=== PATIENT | male | born 1980 | race Caucasian/White ===

== ENCOUNTER 2017-08-04 07:56 | Emergency (ER) | payer OTHER, MEDICAID ==
[~2017-08-04] VITALS: Ht 177.8 cm; Wt 83.7 kg
[~2017-08-04 07:56] MED LIST: IBUP-238 PO
[2017-08-04 08:00] VITALS: BP 127/83; PULSE 80; RESP 16; TEMP 98.3; O2SAT 99
[2017-08-04] MEDS ORDERED: PENI500T PO (08:14)
[2017-08-04] MEDS ORDERED: NAPR500T PO (08:23)
--- NOTE | 2017-08-04 08:23 | PD ---
HPI Chief Complaint: ENT Complaint Time Seen by Provider: 08:12 Travel History International Travel<30 days: No Contact w/Intl Traveler<30days: No Traveled to known affect area: No History of Present Illness HPI This is a 36-year-old male who presents to the emergency department with sore throat, constant for 3 days, severe at nighttime, feeling like he can't breathe when he lays flat, and that he has pain when he eats. He denies any associated fevers or chills. He has not been coughing. He was seen at an urgent care yesterday and had a negative rapid strep that was treated with penicillin. He' s taken 2 doses of penicillin but he says his pain is much worse. PFSH Past Medical History Medical History: Denies Significant Hx Blood Disorders: No Cancer: No Cardiovascular Problems: No Diminished Hearing: No Endocrine: No Gastrointestinal Disorders: No Genitourinary: No Immune Disorder: No Implanted Vascular Access Dvce: No Musculoskeletal: No Neurologic: No Psychiatric: No Reproductive: No Respiratory: No Immunizations Current: Yes Past Surgical History Other Surgery: No Social History Alcohol Use: Yes (OCCASIONAL) Tobacco Use: Yes (occasional) Substance Use: No Allergies-Medications (Allergen,Severity, Reaction): Coded Allergies: No Known Allergies (Verified , 08/04/17) Reported Meds & Prescriptions Reported Meds & Active Scripts Active Reported Penicillin V Potassium 500 Mg Tab 500 Mg PO Q6H Review of Systems Except as stated in HPI: all other systems reviewed are Neg Physical Exam Narrative GENERAL:Well appearing, no acute distress SKIN: Focused skin assessment warm and dry. HEAD: Atraumatic. Normocephalic. EYES: Pupils equal and round. No injection or drainage. ENT: Moist mucous membranes. Posterior pharyngeal erythema with tonsillar erythema and edema and some exudate on the left tonsil. No asymmetry or uvular deviation. NECK: Trachea midline. No cervical lymphadenopathy. CARDIOVASCULAR: Regular rate and rhythm. No murmur appreciated. RESPIRATORY: Clear to auscultation. Breath sounds equal bilaterally. GASTROINTESTINAL: Abdomen soft, non-tender, nondistended. MUSCULOSKELETAL: No obvious deformities. NEUROLOGICAL: Awake and alert. No obvious cranial nerve deficits. Moving all extremities. PSYCHIATRIC: Appropriate mood and affect; insight and judgment normal. Data Data Last Documented VS Vital Signs Date Time Temp Pulse Resp B/P (MAP) Pulse Ox O2 Delivery O2 Flow Rate FiO2 10/11/17 08:00 98.3 80 16 127/83 (98) 99 [facility] Medical Decision Making Medical Screen Exam Complete: Yes Emergency Medical Condition: Yes Differential Diagnosis Pharyngitis, peritonsillar abscess, mononucleosis, epiglottitis Narrative Course This is a 36-year-old male who presents to the emergency department with a sore throat that's been worsening since yesterday when he started penicillin. He has no signs of peritonsillar abscess and I don't think he has mononucleosis as he is afebrile and he has no lymphadenopathy. I think patient may benefit symptomatically from steroids. Patient will be given a dose of IM Decadron and an anti-inflammatory to go home with. I think he's safe for outpatient management. Diagnosis Primary Impression: Pharyngitis Qualified Codes: J02.9 - Acute pharyngitis, unspecified Patient Instructions: General Instructions Additional Instructions: If you develop severe chest pain, shortness of breath, sweating, lightheadedness , dizziness or difficulty breathing return to the emergency department immediately. Followup with your primary care physician in 2-3 days if your symptoms are not resolved. Med/Other Pt SpecificInfo: Prescription(s) given Scripts Naproxen (Naproxen) 500 Mg Tab 500 MG PO BID Y for PAIN SCALE 4 TO 10 for 10 Days, #20 TAB 0 Refills Prov: Radha Means MD 08/04/17 Disposition: 01 DISCHARGE HOME Condition: Stable Radha Means MD Aug 04, 2017 08:23
[2017-08-04] MEDS ORDERED: DEXAMETHASONE SOD PHOS 20 MG/5 ML VIAL IM ONE (08:30)
== END 2017-08-04 08:36 | disposition home or self-care (01) ==
LOC: PHED 07:56
DX: J02.9 Acute pharyngitis, unspecified (principal)
CPT/HCPCS: 96372; 99284; J1100

== ENCOUNTER 2018-01-15 23:15 | Emergency (ER) | payer MEDICAID ==
[~2018-01-15] VITALS: Ht 177.8 cm; Wt 82.0 kg
[~2018-01-15 23:15] MED LIST changes: -IBUP-238 PO; +NAPR500T2 PO; +PENI500T PO
[2018-01-15 23:22] VITALS: BP 148/90; PULSE 98; RESP 18; TEMP 98.9; O2SAT 99
[2018-01-16 00:07] VITALS: BP 148/90; PULSE 98; RESP 18; TEMP 98.9; O2SAT 99
[2018-01-16 00:30] VITALS: BP 137/95; PULSE 92; RESP 18; O2SAT 100
--- NOTE | 2018-01-16 01:54 | RADRPT ---
EXAM DATE/TIME: 01/16/2018 00:44 [facility] COMPARISON: No previous studies available for comparison. INDICATIONS : Left facial and orbital swelling with lacerations. MEDICAL HISTORY : None. SURGICAL HISTORY : None. ENCOUNTER: Initial ACUITY: 1 day PAIN SCORE: 8/10 LOCATION: Left cranial FINDINGS: Multiple views of the facial bones demonstrate no evidence of fracture. The nasal bone is intact. T he zygomatic arches are intact. The infraorbital rim is intact. The maxillary sinus is clear withou t air fluid level. No radiopaque foreign bodies are seen. CONCLUSION: Negative trauma study. Gurpreet Velazquez MD on January 16, 2018 at 1:02 Board Certified Radiologist. This report was verified electronically.
[2018-01-16 02:18] VITALS: BP 124/85
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
== END 2018-01-16 03:38 | disposition home or self-care (01) ==
LOC: PHED 23:15
DX: S01.81XA Laceration without foreign body of other part of head, initial encounter (principal); Y04.0XXA Assault by unarmed brawl or fight, initial encounter
CPT/HCPCS: 12011; 70150